=== PATIENT | male | born 1975 | race Caucasian/White ===

== ENCOUNTER → 2021-12-31 | Outpatient (CLI) | payer OTHER ==
[~2021-12-31] MED LIST: PROHANCE 279.3MG/ML 15ML VIAL ONE
== END ==
LOC: M PLAIMG 08:02
PROVIDERS: ATTEND Psychiatry & Neurology Neurology
DX: D48.2 Neoplasm of uncertain behavior of peripheral nerves and autonomic nervous system (principal); M50.11 Cervical disc disorder with radiculopathy, high cervical region; M50.121 Cervical disc disorder at C4-C5 level with radiculopathy; M50.122 Cervical disc disorder at C5-C6 level with radiculopathy; M47.22 Other spondylosis with radiculopathy, cervical region; M25.78 Osteophyte, vertebrae; M51.36 Other intervertebral disc degeneration, lumbar region
CPT/HCPCS: 72141; 72158; A9576

== ENCOUNTER 2022-04-17 11:48 | Day surgery (SDC) | payer OTHER ==
[~2022-04-17] VITALS: Ht 154.9 cm; Wt 58.2 kg
[~2022-04-17 11:48] MED LIST changes: +AIMO70IN SC; +LEXA1TAB PO; +NS 1,000 ML IV ONE; -PROHANCE 279.3MG/ML 15ML VIAL ONE; +TRAZ-252 PO
[2022-04-17] MEDS ORDERED: propofoL 200 MG/20 ML VIAL As Ordered ONE (13:14)
[2022-04-17] MEDS ORDERED: LIDOCAINE 2% 100MG/5ML SDV (FOR ANES.) As Ordered ONE (13:14)
[2022-04-17 13:47] VITALS: BP 118/79
== END 2022-04-17 14:00 | disposition home or self-care (01) ==
LOC: M OPP 11:48
PROVIDERS: ATTEND Surgery
DX: D12.4 Benign neoplasm of descending colon (principal); R10.13 Epigastric pain; K22.89 Other specified disease of esophagus; K29.70 Gastritis, unspecified, without bleeding; G43.909 Migraine, unspecified, not intractable, without status migrainosus; F43.10 Post-traumatic stress disorder, unspecified; G47.30 Sleep apnea, unspecified; Z79.899 Other long term (current) drug therapy; Z99.89 Dependence on other enabling machines and devices

== ENCOUNTER → 2022-05-20 | Outpatient (REF) ==
[~2022-05-20] MED LIST changes: -NS 1,000 ML IV ONE
== END ==
LOC: M PLAIMG 13:12
PROVIDERS: ATTEND Internal Medicine
DX: M25.521 Pain in right elbow (principal); M25.522 Pain in left elbow; M25.531 Pain in right wrist; M25.532 Pain in left wrist; M25.541 Pain in joints of right hand; M25.542 Pain in joints of left hand; M25.561 Pain in right knee; M25.562 Pain in left knee; M79.604 Pain in right leg; M79.605 Pain in left leg; M79.89 Other specified soft tissue disorders

== ENCOUNTER → 2022-05-24 | Outpatient (CLI) | payer OTHER ==
[~2022-05-24] MED LIST changes: +GASTROGRAFIN SOLUTION 30ML As Ordered ONE; +ISOVUE-370 76% 100ML VIAL As Ordered ONE
== END ==
LOC: M RAD 10:43
PROVIDERS: ATTEND Physician Assistant
DX: K29.70 Gastritis, unspecified, without bleeding (principal); R10.13 Epigastric pain; K76.0 Fatty (change of) liver, not elsewhere classified; N28.1 Cyst of kidney, acquired; N32.89 Other specified disorders of bladder

== ENCOUNTER → 2022-06-07 | Outpatient (CLI) | payer OTHER ==
[~2022-06-07] MED LIST changes: +E-Z-GAS II EFFERVESCENT PACKET (SODIUM BICARB./CITRIC ACID/SIMETHICONE) As Ordered ONE; +E-Z-HD 98% w/w 340GM SUSP BTL As Ordered ONE; +E-Z-PAQUE 96% w/w SUSP 176GM BTL As Ordered ONE; -GASTROGRAFIN SOLUTION 30ML As Ordered ONE; -ISOVUE-370 76% 100ML VIAL As Ordered ONE
== END ==
LOC: M RAD 05-29 08:41
PROVIDERS: ATTEND Physician Assistant
DX: K29.70 Gastritis, unspecified, without bleeding (principal); R10.13 Epigastric pain; K21.9 Gastro-esophageal reflux disease without esophagitis